=== PATIENT | female | born 1940 | race Caucasian/White ===

== ENCOUNTER 2017-05-11 06:59 | Emergency (ER) | payer MEDICARE, OTHER ==
[~2017-05-11] VITALS: Ht 157.5 cm; Wt 80.0 kg
[~2017-05-11 06:59] MED LIST: ALEN70TA30 PO; AMLO-147 PO; ASPI-535 PO; BENA40TA41 PO; CARV3.1260 PO; CHOL100012 PO; CLON-230 PO; DOCU-159 PO; GLIM4TAB PO; HYDR-3670 PO; LOVA20TA PO; METF500T4 PO; OMEP40CA3 PO; ZOF8 PO
[2017-05-11 07:03] VITALS: Ht 157.5 cm; Wt 80.0 kg
[2017-05-11] MEDS ORDERED: ONDANSETRON (ODT) 4 MG TAB ODT STA (07:22)
[2017-05-11] MEDS ORDERED: HYDROCODONE/APAP (5/325) TAB PO ONE (07:30)
[2017-05-11] MEDS ORDERED: HYDR-906 PO (07:57)
[2017-05-11] MEDS ORDERED: DOCU-144 PO (07:57)
[2017-05-11 08:03] VITALS: BP 161/83; PULSE 70; RESP 19
--- NOTE | 2017-05-11 09:20 | RADRPT ---
PROCEDURE: XR Forearm 2 Views. CLINICAL INDICATION: Pain and trauma TECHNIQUE: AP and lateral views of the left forearm were obtained. COMPARISON: No prior studies are available for comparison. FINDINGS: Diffuse osteopenia is identified. The osseous structures appear intact. No destructive bony lesion s are identified. Subtle chondrocalcinosis is noted in the region of the triangular fibrocartilage. The soft tissues are grossly unremarkable. IMPRESSION: No visualized traumatic injury. Osteopenia. Subtle chondrocalcinosis in the region of the triangular fibrocartilage. If there is high clinical suspicion for traumatic injury, further evaluation with CT should be consi dered. RPTAT: AA .Sammy Nelson MD, MD Date Time Electronically viewed and signed by .Sammy Nelson MD, on 05/11/2017 09:20 .P/
--- NOTE | 2017-05-11 11:07 | ERD ---
ER Documentation Chief Complaint Date/Time DATE: 05/11/17 TIME: 11:05 Chief Complaint Complains of arm pain and swelling after sleeping on arm HPI Patient is a 77-year-old female with coronary disease, hypertension, and diabetes who presents with pain in her left forearm. She says that she "slept on it the wrong way" 2-3 days ago. She has mild swelling. She tried Tylenol. She denies trauma or fall. She is right-handed. She denies chest pain. Her primary doctor is Dr. Toro. Upon review of old medical records this is the patient's fifth visit to the ER since 2010. ROS All systems reviewed and are negative except as per history of present illness. Medications Home Meds Active Scripts Docusate Sodium* (Colace*) 100 Mg Capsule, 100 MG PO TID, #30 CAP Prov:HANNAH KOHLI MD 05/11/17 Hydrocodone/Acetaminophen ([place] 5-325 Tablet) 1 Each Tablet, 1 TAB PO Q6H Y for PAIN, #7 TAB Prov:HANNAH KOHLI MD 05/11/17 Ondansetron Hcl* (Zofran* ODT) 8 mg -ODT Tab.disper, 8 MG PO Q6H Y for NAUSEA AND OR VOMITING, #10 TAB Prov:DAVE DECKER DO 12/30/15 Hydralazine Hcl* (Hydralazine Hcl*) 10 Mg Tablet, 10 MG PO Q8, #90 TAB Prov:DAVE DECKER DO 12/30/15 Reported Medications Glimepiride* (Glimepiride*) 4 Mg Tablet, 4 MG PO BID 02/07/13 Amlodipine Besylate* (Amlodipine Besylate*) 10 Mg Tablet, 10 MG PO DAILY 02/07/13 Carvedilol* (Carvedilol*) 3.125 Mg Tablet, 3.125 MG PO BID 02/07/13 Benazepril Hcl* (Benazepril Hcl*) 40 Mg Tablet, 40 MG PO DAILY 02/07/13 Clonidine Hcl (Clonidine Hcl) 0.1 Mg Tablet, 0.1 MG PO BID 02/07/13 Cholecalciferol (Vitamin D3) 1,000 Unit Tab.chew, 1000 PO DAILY 02/07/13 Docusate Sodium* (Docusate Sodium*) 100 Mg Capsule, 100 MG PO BID 02/07/13 Alendronate Sodium* (Fosamax*) 70 Mg Tablet, 70 MG PO WEEKLY 02/07/13 Omeprazole* (Prilosec*) 40 Mg Capsule.dr, 40 MG PO AC BREAKFAST 02/07/13 Lovastatin* (Lovastatin*) 20 Mg Tablet, 20 MG PO DAILY 02/07/13 Aspirin Ec (Aspir 81) 81 Mg Tablet.dr, 81 MG PO DAILY 11/05/11 Metformin* (Glucophage*) 500 Mg Tab, 500 MG PO BID 11/05/11 Allergies Allergies: Coded Allergies: No Known Allergy (Unverified , 03/09/14) PMhx/Soc Positive for coronary disease, hypertension, and diabetes History of Surgery: No Anesthesia Reaction: No Hx Neurological Disorder: No Hx Respiratory Disorders: No Hx Cardiac Disorders: No Hx Psychiatric Problems: No Hx Miscellaneous Medical Probl: No Hx Alcohol Use: No Hx Substance Use: No Hx Tobacco Use: No FmHx Family History: No diabetes Physical Exam Vitals Vital Signs Date Time Temp Pulse Resp B/P Pulse Ox O2 Delivery O2 Flow Rate FiO2 05/11/17 08:03 70 19 161/83 99 Room Air 05/11/17 07:03 97.8 70 20 170/78 96 Physical Exam Const: No acute distress Head: Atraumatic Eyes: Normal Conjunctiva ENT: Normal External Ears, Nose and Mouth. Neck: Full range of motion..~ No meningismus. Resp: Clear to auscultation bilaterally Cardio: Regular rate and rhythm, no murmurs Abd: Soft, non tender, non distended. Normal bowel sounds Skin: No sign of infection of the left forearm but there is mild swelling Back: No midline or flank tenderness Ext: Tenderness along the wrist and left forearm without obvious deformity or bruising Neur: Awake and alert, nerve roots of the left upper extremity are intact Psych: Normal Mood and Affect Results 24 hrs Current Medications Medications (Trade) Dose Ordered Sig/Paulino Route PRN Reason Start Time Stop Time Status Last Admin Dose Admin Acetaminophen/ Hydrocodone Bitart ([place] (5/325)) 1 tab ONCE ONCE PO 05/11/17 07:30 05/11/17 07:31 DC 05/11/17 07:26 Ondansetron HCl (Zofran Odt) 4 mg ONCE STAT ODT 05/11/17 07:22 05/11/17 07:23 DC 05/11/17 07:25 Procedures/MDM X-ray Forearm 3V Interpreted by me: Bones: No fracture Joints: No dislocation Foreign body: None Splint Note Type: Sling Location: Left upper extremity Indication: Left forearm pain Splint Assessment: Neurovascularly intact post splint placement with good fit. Patient is a 77-year-old female presents with left forearm pain. There is no sign of infection. X-ray shows no fracture or dislocation. The patient was given a sling. She was given [place] for pain. She can return for any worsening symptoms. I believe outpatient management is appropriate. Departure Diagnosis: Primary Impression: Pain of left arm Patient Instructions: Muscle Strain, Extremity Referrals: FARHANA PATEL (PCP) Additional Instructions: Call your primary care doctor TOMORROW for an appointment during the next 1-2 days.See the doctor sooner or return here if your condition worsens before your appointment time. HANNAH KOHLI MD May 11, 2017 11:07
== END 2017-05-11 08:03 | disposition home or self-care (01) ==
LOC: FTE 06:59
DX: M79.602 Pain in left arm (principal); I25.10 Atherosclerotic heart disease of native coronary artery without angina pectoris; I10 Essential (primary) hypertension; E11.9 Type 2 diabetes mellitus without complications; Z79.82 Long term (current) use of aspirin; Z79.84 Long term (current) use of oral hypoglycemic drugs
CPT/HCPCS: 73090